=== PATIENT | male | born 1955 | race Caucasian/White ===

== ENCOUNTER 2020-01-29 02:29 | Observation (INO) | payer MEDICARE, SELFPAY ==
[2020-01-29] VITALS (8 sets, daily range): BP systolic 112–157; BP diastolic 68–95; PULSE 65–89; RESP 16–20; TEMP 36.5–37.1; O2SAT 96–99; BMI 32.3
--- NOTE | 2020-01-29 02:58 | CTR_ITS ---
PROCEDURE INFORMATION: Exam: CT Abdomen And Pelvis With Contrast Exam date and time: 01/29/2020 3:05 AM Age: 64 years old Clinical indication: Other: Rectal bleeding; Abdominal pain; Generalized; Prior surgery; Surgery date: Post-operative (0-2 days); Surgery type: Colonoscopy with 4 polyps removed; Additional info: Rlq pain post colonoscopy TECHNIQUE: Imaging protocol: Computed tomography of the abdomen and pelvis with intravenous contrast. Radiation optimization: All CT scans at this facility use at least one of these dose optimization techniques: automated exposure control; mA and/or kV adjustment per patient size (includes targeted exams where dose is matched to clinical indication); or iterative reconstruction. Contrast material: OMNI 300; Contrast volume: 95 ml; Contrast route: INTRAVENOUS (IV); COMPARISON: No relevant prior studies available. RADIATION DOSE METRICS: Total DLP (mGy-cm): 1835.77 FINDINGS: Lungs: A prominent calcified granulomas seen in the left lower lobe measuring approximately 12 mm in diameter. Liver: There is a 2.6 cm hypoattenuation cystic lesions seen within the left hepatic lobe compatible with a simple cyst. Gallbladder and bile ducts: Normal. No calcified stones. No ductal dilation. Pancreas: Normal. No ductal dilation. Spleen: Normal. No splenomegaly. Adrenals: Normal. No mass. Kidneys and ureters: Normal. No hydronephrosis. Stomach and bowel: Diverticula are seen on the sigmoid colon. There are no inflammatory changes seen to suggest diverticulitis. There is bowel wall thickening seen at the junction of the ascending and transverse colon at the level of the hepatic flexure with surrounding hazy in strandy opacities, findings compatible with focal inflammatory changes. There are extra luminal gas densities adjacent to the posterior aspect of the hepatic flexure of the colon worrisome for a bowel perforation. Nondilated loops of small bowel containing fluid and some desiccated bowel contents likely represents postoperative small bowel stasis. Appendix: No evidence of appendicitis. Intraperitoneal space: Unremarkable. No free air. No significant fluid collection. Retroperitoneal space: There is some thickening of the lateral conal fascia and erodes fascia on the right adjacent to the inflamed colon. Vasculature: Unremarkable. No abdominal aortic aneurysm. Lymph nodes: Unremarkable. No enlarged lymph nodes. Bladder: The bladder appears decompressed. Reproductive: Coarse calcifications are seen within the the prostate gland. Bones/joints: There is diffuse degenerative disc disease seen within the lumbar spine. Mild deformity of the superior endplate of T12 is seen. Soft tissues: Unremarkable. CT/CT abdomen pelvis w con* [id number] IMPRESSION: 1. There is focal bowel wall thickening and surrounding inflammatory changes seen within the hepatic flexure of the colon compatible with colitis. A trace amount of extra luminal gas is seen along the posterior aspect of the inflamed colon suggesting a bowel perforation. 2. Probable small bowel stasis postoperatively. 3. Benign appearing hepatic cyst in the left hepatic lobe measuring 2.6 cm. No further workup needed. 4. Diverticulosis of the sigmoid colon without evidence of diverticulitis Radiation Dose CTDIVOL = (mGy): DLP = 1835.77 (mGy-cm)
--- NOTE | 2020-01-29 03:00 | W.ED.GIBLEED ---
HPI - GI Bleed General: Chief complaint: GI Bleed Stated complaint: post colonscopy complications Time Seen by Provider: 01/29/20 02:45 History of Present Illness: HPI Narrative: 64-year-old gentleman who had a colonoscopy on . He notes that Friday during the day he was fine. Last evening he developed a little discomfort and bloating. He felt like [facility] When he did, it was bright red blood, enough to turn all the water red. No padmini clots in the stool. He had 1 more episode that was mostly gaseous, but with some blood as well. Since then he has been more bloated, and having cramps, particularly on the right side of his belly and his right lower quadrant. No fever, no vomiting. MD complaint: gross hematochezia Onset (ago): hour(s) Pain Consistency: constant Severity: moderate Relieving factors: eating (Possibly) Associated symptoms: Reports abdominal pain; Denies epistaxis, fever(s), headache(s), nausea, other bleeding, rash or vomiting Review of Systems Const: Denies: fever(s) Eyes: Denies: change in vision ENMT: Denies: epistaxis Card: Denies: chest pain, palpitations, irregular heart rhythm or dyspnea on exertion Resp: Denies: dyspnea, productive cough, non-productive cough or wheezing GI: Reports: abdominal pain; Denies: nausea or vomiting : Denies: difficulty urinating or hematuria Musc: Denies: neck pain or back pain Skin/Breast: Denies: rash or pruritus Neuro: Denies: headache(s), dizziness or vertigo Psych: Denies: anxiety Physical Exam Const: GENERAL APPEARANCE: well developed ORIENTATION/CONSCIOUSNESS: Yes oriented to person, Yes oriented to place and Yes oriented to time HENMT: COMMON NORMALS: normocephalic, external ears normal and Normal external nose present HEAD & SCALP: normocephalic FACE & SINUS: normal facial exam NOSE: Normal external nose present and No nasal discharge present EXTERNAL EAR: Yes external ears normal THROAT: posterior oropharynx normal; no peritonsillar mass Eye: COMMON NORMALS: Equal, round and reactive pupils present, EOMs intact bilaterally and conjunctivae normal EYELID: eyelids normal CONJUNCTIVA: Yes conjunctivae normal PUPIL: Yes Equal, round and reactive pupils present Neck/C-Spine: GENERAL: No tracheal deviation Chest: COMMONS NORMALS: normal inspection of the chest CHEST: No tenderness Resp: COMMON NORMALS: clear to auscultation bilaterally EFFORT & INSPECTION: No tachypneic, No respiratory distress, No retractions, No uses accessory muscles and No tracheal deviation AUSCULTATION: clear to auscultation bilaterally, no rhonchi, no wheezes and lung sounds not diminished Cardio: COMMON NORMALS: regular rate and regular rhythm RATE: regular rate RHYTHM: regular rhythm HEART SOUNDS: no murmurs PERIPHERAL PULSES: radial pulses present GI: INSPECTION: No abdominal distension AUSCULTATION: No Hyperactive bowel sounds present and No Hypoactive bowel sounds present PALPATION: Yes Tenderness to palpation present (GI) Details: RLQ, No Guarding due to palpation present (GI) and No Rigid due to palpation PERCUSSION: no dullness to percussion and tympanic to percussion Neuro: SENSORIUM/ORIENTATION: Yes oriented to person, Yes oriented to place and Yes oriented to time Psych: COMMON NORMALS: mental status grossly normal Skin: COMMON NORMALS: no rashes or lesions noted GENERAL SKIN EXAM: no rashes or lesions noted Course Consultations: Consultation #1: Roylance Time: 05:05 Vital Signs: Vital signs: Vital Signs Temperature 98.6 F 01/29/20 02:36 Pulse Rate 89 01/29/20 06:05 Respiratory Rate 16 01/29/20 06:05 Blood Pressure 126/83 01/29/20 06:05 Pulse Oximetry 98 01/29/20 06:05 MDM - GI Bleed MDM Narrative: Medical decision making narrative: 64-year-old male with a tender right side of the belly, post colonoscopy. He has a normal white count. His hemoglobin is 14.5, despite some mild blood loss. His CT shows hepatic flexure wall thickening of the colon with some fat stranding, and a small amount of extraluminal free air. Spoke with his physician. He will admit to observation. Surgery will be available for consult if needed. Antibiotic coverage for now. Lab Data: Labs: Lab Results 01/29/20 01/29/20 01/29/20 Range/Units 02:53 02:53 02:53 WBC 9.1 (4.0-10.0) 10^3/ uL RBC 4.79 (4.1-5.3) 10^6/u L Hgb 14.5 (11.7-16.6) g/dL Hct 43.9 (42.0-52.0) % MCV 91.6 (80-94) fL MCH 30.3 (28.0-34.0) pg MCHC 33.0 (30.0-36.0) g/dL RDW 12.3 (12.1-15.1) % Plt Count 153 (130-400) 10^3/c mm MPV 10.6 H (7.4-10.4) fL Neut % (Auto) 73.0 % Lymph % (Auto) 15.9 % Throckmorton % (Auto) 7.9 % Eos % (Auto) 2.2 % Baso % (Auto) 0.8 % Neut # (Auto) 6.63 (1.8-7.7) 10^3/u L Lymph # (Auto) 1.4 (0.8-4.8) 10^3/u L Throckmorton # (Auto) 0.7 (0.2-0.9) 10^3/u L Eos # (Auto) 0.2 (0.0-0.8) 10^3/u L Baso # (Auto) 0.1 (0.0-0.1) 10^3/u L Nucleated RBC % (a uto) 0 % Nucleated RBCs # 0.0 /100WBC Sodium 136 (136-145) mmol/L Potassium 4.1 (3.5-5.1) mmol/L Chloride 103 (98-107) mmol/L Carbon Dioxide 23 (22-29) mmol/L Anion Gap 14.1 (5-19) BUN 23 (8-23) mg/dL Creatinine 1.1 (0.7-1.2) mg/dL GFR Calculation 67.2 L (90-130) mL/min Glucose 109 (65-115) mg/dL Calculated Osmolal ity 279 L (285-295) mOsm/k g Calcium 9.4 (8.5-10.5) mg/dL Total Bilirubin 0.5 (0.15-1.2) mg/dL AST 15 (0-40) U/L ALT 29 (0-41) U/L Alkaline Phosphata se 69 (40-130) IU/L Total Protein 6.7 (6.6-8.7) g/dL Albumin 4.3 (3.5-5.2) g/dL Globulin 2.4 (1.3-4.6) g/dL Lipase 37 (13-60) U/L Urine Color (Yellow) Urine Appearance (CLEAR) Urine pH (5-7) Ur Specific Gravit y (1.005-1.030) Urine Protein (Negative) Urine Glucose (UA) (Normal) Urine Ketones (Negative) Urine Blood (Negative) Urine Nitrate (Negative) Urine Bilirubin (NEGATIVE) Urine Urobilinogen (Negative) mg/dL Ur Leukocyte Marcella ase (Negative) Blood Type B Positive Rho(D) Type Positive Antibody Screen Negative 01/29/20 Range/Units 03:35 WBC (4.0-10.0) 10^3/ uL RBC (4.1-5.3) 10^6/u L Hgb (11.7-16.6) g/dL Hct (42.0-52.0) % MCV (80-94) fL MCH (28.0-34.0) pg MCHC (30.0-36.0) g/dL RDW (12.1-15.1) % Plt Count (130-400) 10^3/c mm MPV (7.4-10.4) fL Neut % (Auto) % Lymph % (Auto) % Throckmorton % (Auto) % Eos % (Auto) % Baso % (Auto) % Neut # (Auto) (1.8-7.7) 10^3/u L Lymph # (Auto) (0.8-4.8) 10^3/u L Throckmorton # (Auto) (0.2-0.9) 10^3/u L Eos # (Auto) (0.0-0.8) 10^3/u L Baso # (Auto) (0.0-0.1) 10^3/u L Nucleated RBC % (a uto) % Nucleated RBCs # /100WBC Sodium (136-145) mmol/L Potassium (3.5-5.1) mmol/L Chloride (98-107) mmol/L Carbon Dioxide (22-29) mmol/L Anion Gap (5-19) BUN (8-23) mg/dL Creatinine (0.7-1.2) mg/dL GFR Calculation (90-130) mL/min Glucose (65-115) mg/dL Calculated Osmolal ity (285-295) mOsm/k g Calcium (8.5-10.5) mg/dL Total Bilirubin (0.15-1.2) mg/dL AST (0-40) U/L ALT (0-41) U/L Alkaline Phosphata se (40-130) IU/L Total Protein (6.6-8.7) g/dL Albumin (3.5-5.2) g/dL Globulin (1.3-4.6) g/dL Lipase (13-60) U/L Urine Color Yellow (Yellow) Urine Appearance Clear (CLEAR) Urine pH 5 (5-7) Ur Specific Gravit y 1.030 (1.005-1.030) Urine Protein Neg (Negative) Urine Glucose (UA) Norm (Normal) Urine Ketones Negative (Negative) Urine Blood Neg (Negative) Urine Nitrate Negative (Negative) Urine Bilirubin Neg (NEGATIVE) Urine Urobilinogen Norm (Negative) mg/dL Ur Leukocyte Marcella ase Negative (Negative) Blood Type Rho(D) Type Antibody Screen Discharge Plan Discharge Patient Disposition: Placed in Observation Admit Provider: Duane Polanco Clinical Impression: Colitis Condition: Stable Coding Level of Care Code ED Computer Project Manager for Chg Fwd Exam Comprehensive
[2020-01-29 03:09] LABS: Basophils # 0.1 10^3/uL (0.0-0.1); Basophils % 0.8 %; Eosinophils # 0.2 10^3/uL (0.0-0.8); Eosinophils % 2.2 %; Hematocrit 43.9 % (42.0-52.0); Hemoglobin 14.5 g/dL (11.7-16.6); Lymphocytes # 1.4 10^3/uL (0.8-4.8); Lymphocytes % 15.9 %; Mean Corpuscular Hemoglobin 30.3 pg (28.0-34.0); Mean Corpuscular Volume 91.6 fL (80-94); Mean Platelet Volume 10.6 fL (7.4-10.4); Monocytes # 0.7 10^3/uL (0.2-0.9); Monocytes % 7.9 %; Neutrophils # 6.63 10^3/uL (1.8-7.7); Nucleated Red Blood Cells % 0 %; Platelet Count 153 10^3/cmm (130-400); Red Blood Count 4.79 10^6/uL (4.1-5.3); Red Cell Distribution Width 12.3 % (12.1-15.1); White Blood Count 9.1 10^3/uL (4.0-10.0)
[2020-01-29 03:27] LABS: Alanine Aminotransferase 29 U/L (0-41); Albumin Level 4.3 g/dL (3.5-5.2); Alkaline Phosphatase 69 IU/L (40-130); Anion Gap 14.1 (5-19); Aspartate Amino Transferase 15 U/L (0-40); Blood Urea Nitrogen 23 mg/dL (8-23); Calcium 9.4 mg/dL (8.5-10.5); Carbon Dioxide 23 mmol/L (22-29); Chloride 103 mmol/L (98-107); Globulin 2.4 g/dL (1.3-4.6); Glomerular Filtration Rate 67.2 mL/min (90-130); Glucose 109 mg/dL (65-115); Lipase 37 U/L (13-60); Osmolality Calculated 279 mOsm/kg (285-295); Potassium 4.1 mmol/L (3.5-5.1); Sodium 136 mmol/L (136-145); Total Bilirubin 0.5 mg/dL (0.15-1.2); Total Protein 6.7 g/dL (6.6-8.7)
[2020-01-29] MEDS: iohexol 300 mg/mL 100 mL Btl IV (03:42)
[2020-01-29 03:46] LABS: Add Urine Microscopic? NO
[2020-01-29 03:56] LABS: Bilirubin Urine Neg (NEGATIVE); Blood Urine Neg (Negative); Glucose Urine UA Norm (Normal); Ketones Urine Negative (Negative); Leukocyte Esterase Urine Negative (Negative); Nitrate Urine Negative (Negative); Protein Urine Neg (Negative); Urine Appearance Clear (CLEAR); Urine Color Yellow (Yellow); Urobilinogen Urine Norm (Negative); pH Urine 5 (5-7)
[2020-01-29] MEDS: ciprofloxacin 400 MG/200 ML PREMIX 200 MG IV (05:04)
--- NOTE | 2020-01-29 06:07 | PC.NURSE ---
Called report to [facility] on med-surg
[2020-01-29] MEDS: metroNIDAZOLE IV 500 MG/100 ML PREMIX 100 MG IV ×3 (06:10→21:35)
--- NOTE | 2020-01-29 06:15 | PC.NURSE ---
Pt refused gown at this time.
[2020-01-29] MEDS: sodium chloride 0.9% 1,000 ML 150 ML IV ×3 (06:46→21:35)
[2020-01-29] MEDS: lisinopril 10 mg Tablet PO (09:14)
--- NOTE | 2020-01-29 13:17 | PM.SDS ---
Short Stay Summary Providers Date of Admit/Discharge: 01/30/20 Attending Provider: Duane Polanco MD Chief Complaint: post colonscopy complications HPI History of Present Illness Bipin Gonzalez is a 64 year old male who presented to the emergency room because of some abdominal pain, and some rectal bleeding. The patient had a colonoscopy done on of this week which was 2 days prior to the day of admission. During his colonoscopy he had 4 polyps removed including a polyp that had removed piecemeal in the hepatic flexure. Post colonoscopy, he had an unremarkable course. He had several regular meals without difficulty. He had no fever. On the day of admission, he had an episode where he had a sudden urge to have a bowel movement. He then had diarrhea that was noted to be blood. The blood had some red blood and darker blood mixed together. There was no melena. And there was no regular bowel movement. It happened 1 more time, and since that time he has had no further episodes of bleeding. He was noted to have some abdominal pain with some mild rebound in the ER. Since that time, his pain has improved, he has passed gas multiple times. And says he feels pretty good. Review of Systems General: Reports: 10 or more systems reviewed and unremarkable except in HPI and below Const: Denies: fever(s) Card: Denies: chest pain or irregular heart rhythm Resp: Denies: dyspnea GI: Reports: GI cramping Home Meds/Allergies Home Medications and Allergies Home Medications Medication Instructions Recorded Confirmed Type lisinopril 10 mg PO DAILY 01/29/20 01/29/20 History pravastatin 20 mg PO DAILY 01/29/20 01/29/20 History Allergies Allergy/AdvReac Type Severity Reaction Status Date / Time No Known Allergies Allergy Verified 01/29/20 02:40 PFSH Acute PFSH: Family History (Updated 01/29/20 @ 13:25 by Duane Polanco MD) Brother Colon cancer Vitals/I&O/Wt Last Vital Signs Temp 97.7 F 01/29/20 12:00 Pulse 71 01/29/20 12:00 Resp 18 01/29/20 12:00 BP 154/92 01/29/20 12:00 Pulse Ox 97 01/29/20 12:00 01/28/20 01/29/20 01/29/20 22:59 06:59 14:59 Intake Total 200 / 200 860 / 860 Output Total 250 / 250 Balance 200 / 200 610 / 610 Weight last 48 hrs Weight 225 lb Physical Exam Const: COMMON NORMALS: no acute distress and patient oriented x3 GENERAL APPEARANCE: cooperative, comfortable and well developed HENMT: COMMON NORMALS: normocephalic and moist oral mucous membranes HEAD & SCALP: normocephalic Chest: COMMONS NORMALS: normal inspection of the chest Resp: COMMON NORMALS: normal respiratory effort and clear to auscultation bilaterally AUSCULTATION: clear to auscultation bilaterally Cardio: COMMON NORMALS: regular rate, regular rhythm, No gallops present (Cardio), No murmurs present (Cardio) and No rub (Cardio) RATE: regular rate RHYTHM: regular rhythm GI: COMMON NORMALS: Soft to palpation INSPECTION: Yes normal to inspection AUSCULTATION: Yes normoactive bowel sounds PALPATION: Yes Soft to palpation and Yes Rebound tenderness present (Mild generalized tenderness. Slightly more notable in the right upper quadrant. No rebound noted.) Extremity: COMMON NORMALS: normal to inspection Neuro: COMMON NORMALS: patient oriented x3 and no focal motor deficits Skin: COMMON NORMALS: no rashes or lesions noted GENERAL SKIN EXAM: no rashes or lesions noted Hospital Course Hospital Course: The patient demonstrated good improvement during his hospital stay. He had couple of bowel movements on January 28 and the patient stated that there was some blood in his bowel movement. On January 29 he had a bowel movement without any blood. He passed gas regularly. His abdominal pain continue to improve. On the day of discharge, the patient stated that he could barely tell that he had pain there. His exam also improved. He had some questionable rebound on the . On the there was no guarding or rebound noted. His diet was advanced and he tolerated it well. SSS Data Data Completed and Pending: Completed Studies During Hospitalization Category Date Time Status CT abdomen pelvis w con* [id number] Urge nt Cat Scan 01/29/20 02:58 Completed Pending at discharge Category Date Time Status Complete Blood Co unt w/Auto AM LABS Lab 01/30/20 04:00 Ordered Comprehensive Met abolic Panel AM LA BS Lab 01/30/20 04:00 Ordered Diagnoses at Discharge Discharge Diagnosis (1) Colitis: Status: Acute (2) GI bleed: Status: Acute Discharge Plan Discharge Patient Disposition: Home, Self-Care Condition: Stable Prescriptions: New ciprofloxacin HCl 500 mg tablet 500 mg PO BID Qty: 14 RF: 0 metronidazole [Flagyl] 500 mg tablet 500 mg PO Q8H 7 Days Qty: 21 RF: 0 No Action lisinopril 10 mg Tablet 10 mg PO DAILY RF: 0 pravastatin 20 mg Tablet 20 mg PO DAILY RF: 0 Discharge Orders: Discharge Order (Routine); Ordered 01/30/20 Ordered By: Duane Polanco Referrals: Duane Polanco MD [Physician] - 1-3 days (Friday) Discharge Diet: Advance as tolerated Discharge Activity: Increase activity as tolerated Patient Instructions: Gastrointestinal Bleeding (DC), Colonoscopy (DC) Activity Restrictions/Additional Instructions: If bleeding recurs, or pain gets worse contact Dr Polanco or go to the ER. Attestations Medical Necessity Statement*: Is long the patient continues to do well, anticipate he will be discharged home tomorrow morning. Time Spent in Patient Care*: less than 30 min Quality Metrics Clinical Quality Measures: During this hospital stay, did patient experience: None Coding Level of Care Code Acute Handcrew Foreman for g Fwd Exam Comprehensive Diagnoses Colitis K52.9 GI bleed K92.2
[2020-01-29] MEDS: ciprofloxacin 400 MG/200 ML PREMIX 100 MG IV (17:23)
[2020-01-29] MEDS: morphine 4 mg/mL SDV 1 mL IVP (22:45)
[2020-01-30] VITALS: BP 142/74; PULSE 68; RESP 18; TEMP 36.6; O2SAT 96
[2020-01-30] MEDS: metroNIDAZOLE IV 500 MG/100 ML PREMIX 100 MG IV (03:11)
[2020-01-30 04:00] VITALS: BP 148/78; PULSE 66; RESP 19; TEMP 36.8; O2SAT 94
[2020-01-30 04:43] LABS: Basophils % 0.6 %; Eosinophils # 0.2 10^3/uL (0.0-0.8); Eosinophils % 2.3 %; Hematocrit 39.4 % (42.0-52.0); Hemoglobin 12.8 g/dL (11.7-16.6); Lymphocytes # 1.5 10^3/uL (0.8-4.8); Lymphocytes % 22.8 %; Mean Corpuscular HGB Conc 32.5 g/dL (30.0-36.0); Mean Corpuscular Volume 95.4 fL (80-94); Monocytes # 0.7 10^3/uL (0.2-0.9); Monocytes % 10.6 %; Neutrophils # 4.17 10^3/uL (1.8-7.7); Neutrophils % 63.2 %; Nucleated Red Blood Cells % 0 %; Platelet Count 144 10^3/cmm (130-400); Red Blood Count 4.13 10^6/uL (4.1-5.3); Red Cell Distribution Width 12.4 % (12.1-15.1); White Blood Count 6.6 10^3/uL (4.0-10.0)
[2020-01-30 05:01] LABS: Alanine Aminotransferase 19 U/L (0-41); Albumin Level 3.4 g/dL (3.5-5.2); Alkaline Phosphatase 50 IU/L (40-130); Blood Urea Nitrogen 15 mg/dL (8-23); Calcium 8.6 mg/dL (8.5-10.5); Carbon Dioxide 23 mmol/L (22-29); Chloride 104 mmol/L (98-107); Globulin 2.4 g/dL (1.3-4.6); Glucose 92 mg/dL (65-115); Osmolality Calculated 278 mOsm/kg (285-295); Sodium 136 mmol/L (136-145); Total Bilirubin 0.8 mg/dL (0.15-1.2); Total Protein 5.8 g/dL (6.6-8.7)
[2020-01-30] MEDS: sodium chloride 0.9% 1,000 ML 150 ML IV (05:42)
[2020-01-30] MEDS: ciprofloxacin 400 MG/200 ML PREMIX 100 MG IV (05:43)
--- NOTE | 2020-01-30 06:00 | XRR_ITS ---
PROCEDURE INFORMATION: Exam: XR Abdomen, 1 View Exam date and time: 01/30/2020 7:30 AM Age: 64 years old Clinical indication: Abdominal pain; Generalized; Patient HX: S/P colonoscopy 7-9 w polyp removal - micro perforations; Additional info: Colitis/micro perf abd TECHNIQUE: Imaging protocol: XR of the abdomen. Views: Frontal supine view of the abdomen. 1 View. COMPARISON: CT abdomen pelvis w con* [id number] 01/29/2020 3:33 AM FINDINGS: Gastrointestinal tract: Scattered bowel gas within the colon and mildly involving small bowel segments centrally. Limited assessment for bowel gas pattern and for assessment of free air which does not include upright view or the hemidiaphragms. Intraperitoneal space: Likely prostate gland calcifications in the low pelvis. Bones/joints: Degenerative arthritis of both hips. Degenerative change of the spine. XR/XR KUB [id number] IMPRESSION: Scattered colonic bowel gas and mild bowel gas central small bowel segments limitation for detailed bowel-gas pattern assessment or for the presence of free air.
[2020-01-30 06:40] LABS: Aspartate Amino Transferase 10 U/L (0-40)
[2020-01-30 08:00] VITALS: BP 144/85; PULSE 55; RESP 18; O2SAT 98
[2020-01-30 11:46] VITALS: BP 142/72; PULSE 60; RESP 18; TEMP 36.8; O2SAT 97
[2020-01-30 12:48] VITALS: BP 142/72; PULSE 60; RESP 18; TEMP 36.8; O2SAT 97
== END 2020-01-30 13:22 | disposition home or self-care (01) ==
LOC: ER 02:45 → MEDSURG 05:51
PROVIDERS: Emergency Medicine; Nurse Practitioner Family; Admitting Provider Family Medicine; Visit Provider Family Medicine
DX: K52.9 Noninfective gastroenteritis and colitis, unspecified (principal); K92.2 Gastrointestinal hemorrhage, unspecified; Z80.0 Family history of malignant neoplasm of digestive organs; Z86.010 Personal history of colon polyps
CPT/HCPCS: 12345; 36415; 74018; 74177; 80053; 81003; 83690; 85025; 86850; 86900; 96361; 96365; 96366; 96367; 96375; 99283; 99285; G0378; J0744; J2270; J7030; Q9967; S0030